=== PATIENT | female | born 1975 | race Caucasian/White ===

== ENCOUNTER 2023-03-01 13:17 | Emergency (ER) | payer SELFPAY ==
[2023-03-01 13:33] VITALS: BP 110/63; PULSE 61; RESP 18; TEMP 36.7; O2SAT 98; BMI 29.3
--- NOTE | 2023-03-01 13:41 | ECG_ITS ---
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
[2023-03-01 14:02] LABS: Basophils Absolute Auto 0.1 10^3/uL (0.0-0.1); Basophils Percent Auto 1.1 % (0.2-2.0); Eosinophils Absolute Auto 0.1 10^3/uL (0.0-0.7); Eosinophils Percent Auto 2.1 % (0.9-7.0); Hematocrit 39.3 % (36.0-48.0); Immature Granulocytes Abs Auto 0.01 10^3/uL (0.00-0.03); Immature Granulocytes Pct Auto 0.2 % (0.0-0.5); Lymphocytes Absolute Auto 1.6 10^3/uL (1.2-3.8); Lymphocytes Percent Auto 23.8 % (20.5-60.0); Mean Corpuscular HGB Conc 33.1 g/dL (29.9-35.2); Mean Corpuscular Volume 93.6 fL (81.0-99.0); Mean Platelet Volume 8.7 fL (9.5-13.5); Monocytes Absolute Auto 0.7 10^3/uL (0.3-0.8); Monocytes Percent Auto 11.2 % (1.7-12.0); Neutrophils Absolute Auto 4.1 10^3/uL (1.4-6.5); Neutrophils Percent Auto 61.6 % (43.0-75.0); Platelet Count 245 10^3/uL (150-450); Red Cell Distribution Width 12.9 % (11.0-15.0); White Blood Count 6.6 10^3/uL (4.0-11.0)
[2023-03-01 14:05] VITALS: RESP 14; O2SAT 97
[2023-03-01 14:10] VITALS: PULSE 58
--- NOTE | 2023-03-01 14:11 | CT_ITS ---
The [address] [address] Patient Name: SOTO ALVARADO MRN: [id number] date: 1975 Sex: F Assigned Patient Location: ER Current Patient Location: ER Accession/Order Number: [id number] Exam Date: 03/01/2023 14:35 Report Date: 03/01/2023 15:11 At the request of: TIGRE SALOMON Procedure: CT cervical spine wo con EXAM: CT cervical spine wo con HISTORY: Peripheral paresthesia COMPARISON: None. TECHNIQUE: Contiguous transaxial images obtained from skullbase through cervical spine without administration of intravenous contrast. Coronal and sagittal reformations were obtained. Dose reduction: mA and/or kV are were adjusted by automated exposure control software based upon patients height and weight. FINDINGS: There is straightening of the cervical spine with loss of normal cervical lordosis. There is no prevertebral soft tissue swelling or acute cervical spine fracture. Intervertebral disc spaces and vertebral body heights are normal. There is a minimal posterior disc-osteophyte complex at C6-C7. There is right C3-C4 facet osteoarthritis with nonuniform joint space narrowing, osteophytosis, subchondral sclerosis, and subchondral cyst formation. There is resultant right C3-C4 neural foraminal narrowing. There is debris within the mildly patulous esophagus. CT/CT cervical spine wo con IMPRESSION: 1. No acute osseous abnormality of the cervical spine. 2. Straightening of the cervical spine with loss of normal cervical lordosis. This likely positional or related to muscle spasm. 3. Right C3-C4 facet osteoarthritis at contributes to right C3-C4 neural foraminal narrowing. 4. Debris within mildly patulous esophagus. Electronically authenticated by: NOEMI PARRY Date: 03/01/2023 15:11
--- NOTE | 2023-03-01 14:11 | ED_ITS ---
HPI - Chest Pain General Chief Complaint: Chest Pain Stated Complaint: CHEST PAIN Time Seen by Provider: 03/01/23 13:40 Source: patient Mode of arrival: walk-in Limitations: no limitations History of Present Illness HPI narrative: Patient is a 47-year-old female presents to the emergency department for the evaluation of multiple complaints that been ongoing for the last 3 months. 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 She states for the last several months she has been feeling the paresthesia during the daytime as well, she saw a chiropractor and a massage therapist and states plain film x-rays did not show a pinched nerve . She has also had heaviness and tightness in the anterior chest for several months as well as jaw pain for the last several days. She has seen a dentist who referred her to her PCP, she states when she called the PCP office she was referred to [facility] emergency department. She has no other major medical problems. She is not concerned for . She took an aspirin at work today before it was strongly encouraged that she come to the ER. Risk Factors Coronary artery disease risk factors: none Related Data Previous Rx's Medication Instructions Recorded methylprednisolone 4 mg tablets in See Rx Instructions .Route 03/01/23 a dose pack (Medrol (Paul)) .COMPLEX #21 ea mupirocin 2 % topical ointment 1 applic topical BID #15 grams 03/01/23 pantoprazole 40 mg tablet,delayed 40 mg PO DAILY #7 tabs 03/01/23 release (Protonix) sucralfate 1 gram tablet (Carafate) 1 g PO Q6H PRN abdominal pain #12 03/01/23 tabs Allergies Allergy/AdvReac Type Severity Reaction Status Date / Time No Known Drug Allergies Allergy Verified 03/01/23 13:33 Review of Systems ROS Constitutional Denies: fever or chills Ears, nose, mouth, and throat Denies: throat pain Cardiovascular Reports: chest pain Respiratory Denies: shortness of breath or cough Gastrointestinal Denies: nausea, vomiting or diarrhea Genitourinary Denies: painful urination Musculoskeletal Reports: neck pain; Denies: back pain Integumentary/Breast Denies: rash Neurological Reports: numbness in extremities; Denies: headache Exam Narrative Exam Narrative: Gen.: Awake, alert, in no distress Head: Normocephalic, atraumatic ENT: Moist mucous membranes, C-spine nontender Respiratory: No respiratory distress, lungs clear bilaterally Cardio: Regular rate and rhythm Extremities: Moves extremities equally, no pedal edema Psych: Normal mood and affect Neuro: No focal neuro deficit Skin: Warm, dry, intact Constitutional Vital Signs, click to edit/add: Last Vital Signs Temp 98.1 F 03/01/23 13:33 Pulse 61 03/01/23 13:33 Resp 14 03/01/23 14:05 BP 110/63 03/01/23 13:33 Pulse Ox 97 03/01/23 14:05 O2 Del Method Room Air 03/01/23 14:05 Course Vital Signs Vital signs: Vital Signs Temperature 98.1 F 03/01/23 13:33 Pulse Rate 61 03/01/23 13:33 Respiratory Rate 18 03/01/23 13:33 Blood Pressure 110/63 03/01/23 13:33 Pulse Oximetry 98 03/01/23 13:33 Oxygen Delivery Method Room Air 03/01/23 13:33 Temperature 98.1 F 03/01/23 13:33 Pulse Rate 61 03/01/23 13:33 Respiratory Rate 14 03/01/23 14:05 Blood Pressure 110/63 03/01/23 13:33 Pulse Oximetry 97 03/01/23 14:05 Oxygen Delivery Method Room Air 03/01/23 14:05 MDM - Chest Pain MDM Narrative Medical decision making narrative: Patient with a benign exam, normal vital signs, no EKG changes. Her CT of the C-spine does show degenerative changes and foraminal narrowing at C3, C4, I suspect this is the cause of her paresthesias. Chest x-ray is unremarkable. CT of the C-spine also shows the patient has a patulous esophagus with debris, I suspect esophagitis may be causing her chest discomfort and jaw pain. Labs including troponin, D-dimer, TSH all within normal limits. Follow-up with PCP and return to the ER if symptoms change or worsen. At time of reevaluation, patient request that I look at a small rash to his left corner of the mouth has been present for several days, she states it started as a small pimple-like area that she picked at and has now developed a cluster of small scabbed areas. The patient is noted to have a small impetigo like rash to the left corner of the mouth with no crusting or drainage. She will be given Bactroban, Protonix, Carafate, Medrol Dosepak for home. Follow-up with PCP and return to the ER if symptoms change or worsen Medical Records Data Attestation: I reviewed the patient's medical records. Lab Data Attestation: I reviewed the patient's lab results. Labs: Lab Results 03/01/23 Range/Units 13:55 WBC 6.6 (4.0-11.0) 10^3/uL RBC 4.20 (4.20-5.40) 10^6/uL Hgb 13.0 (12.0-16.0) g/dL Hct 39.3 (36.0-48.0) % MCV 93.6 (81.0-99.0) fL MCH 31.0 (26.7-34.0) pg MCHC 33.1 (29.9-35.2) g/dL RDW 12.9 (11.0-15.0) % Plt Count 245 (150-450) 10^3/uL MPV 8.7 L (9.5-13.5) fL Neut % (Auto) 61.6 (43.0-75.0) % Lymph % (Auto) 23.8 (20.5-60.0) % [place] % (Auto) 11.2 (1.7-12.0) % Eos % (Auto) 2.1 (0.9-7.0) % Baso % (Auto) 1.1 (0.2-2.0) % Neut # (Auto) 4.1 (1.4-6.5) 10^3/uL Lymph # (Auto) 1.6 (1.2-3.8) 10^3/uL [place] # (Auto) 0.7 (0.3-0.8) 10^3/uL Eos # (Auto) 0.1 (0.0-0.7) 10^3/uL Baso # (Auto) 0.1 (0.0-0.1) 10^3/uL Abs Immat Gran (auto) 0.01 (0.00-0.03) 10^3/uL Imm/Tot Granulo (auto) 0.2 (0.0-0.5) % PT 10.9 (9.0-11.6) sec INR 1.03 D-Dimer <0.19 (<=0.59) mg/L FEU Sodium 139 (136-145) mmol/L Potassium 4.0 (3.5-5.1) mmol/L Chloride 103 (98-107) mmol/L Carbon Dioxide 29.1 (21.0-32.0) mmol/L Anion Gap 10.9 BUN 25.0 H (7.0-18.0) mg/dL Creatinine 0.99 (0.55-1.02) mg/dL Est GFR ( Amer) >60 (>=60) Est GFR (Non-Af Amer) 60 (>=60) BUN/Creatinine Ratio 25.3 Glucose 102 (74-106) mg/dL Calcium 8.7 (8.5-10.1) mg/dL Magnesium 2.1 (1.8-2.4) mg/dL Total Bilirubin 0.4 (0.2-1.0) mg/dL AST 18 (15-37) U/L ALT 23 (14-59) U/L Alkaline Phosphatase 60 (46-116) U/L Troponin I High Sens 7.4 (4.0-51.3) pg/mL NT-Pro-B Natriuret Pep 99.0 (<=900.0) pg/mL Total Protein 7.4 (6.4-8.2) g/dL Albumin 3.7 (3.4-5.0) g/dL Globulin 3.7 g/dL Albumin/Globulin Ratio 1.0 TSH 1.390 (0.358-3.740) uIU/mL Serum HCG, Qual Negative (NEGATIVE) ECG Data Attestation: I personally reviewed and interpreted this ECG as follows: (Normal sinus rhythm at a rate of 58, no acute ST elevation or ectopy. EKG reviewed by attending physician) Discharge Plan Discharge Chief Complaint: Chest Pain Clinical Impression: Paresthesia of upper limb, Impetigo, Chest pain Patient Disposition: Home, Self-Care Time of Disposition Decision: 15:38 Condition: Good Prescriptions / Home Meds: New sucralfate [Carafate] 1 gram tablet 1 g PO Q6H PRN (Reason: abdominal pain) Qty: 12 0RF pantoprazole [Protonix] 40 mg tablet,delayed release (DR/EC) 40 mg PO DAILY Qty: 7 0RF mupirocin 2 % ointment 1 applic topical BID Qty: 15 0RF methylprednisolone [Medrol (Paul)] 4 mg tablets,dose pack See Rx Instructions .ROUTE .COMPLEX Qty: 21 0RF Rx Instructions: Taper as directed Instructions: Chest Pain (ED), Impetigo (ED), Paresthesia (ED) Stand Alone Forms: Portal Instructions Referrals: Physician,Non-Staff, MD [Primary Care Provider] - 1 week
[2023-03-01] MEDS: ASPIRIN 81 MG TAB.CHEW PO (14:20)
[2023-03-01 14:32] LABS: INR 1.03; Prothrombin Time 10.9 sec (9.0-11.6)
[2023-03-01 14:38] LABS: D Dimer <0.19 mg/L FEU (<=0.59)
--- NOTE | 2023-03-01 14:39 | XR_ITS ---
The [address] [address] Patient Name: SOTO ALVARADO MRN: [id number] date: 1975 Sex: F Assigned Patient Location: ER Current Patient Location: ER Accession/Order Number: [id number] Exam Date: 03/01/2023 14:51 Report Date: 03/01/2023 15:13 At the request of: TIGRE SALOMON Procedure: XR chest 1V EXAM: XR chest 1V at 1450 hours HISTORY: Chest pain COMPARISON: None. TECHNIQUE: AP upright portable chest x-ray FINDINGS: The heart is not enlarged and the vasculature is not distended. No acute infiltrate, effusion or pneumothorax is identified. The osseous structures are grossly intact. XR/XR chest 1V IMPRESSION: No acute infiltrate or evidence of cardiac decompensation. Comparison with a previous study may be helpful in determining the chronicity of these findings. Electronically authenticated by: LUIS DAMON Date: 03/01/2023 15:13
[2023-03-01 14:42] LABS: Alanine Aminotransferase 23 U/L (14-59); Albumin Level 3.7 g/dL (3.4-5.0); Alkaline Phosphatase 60 U/L (46-116); Anion Gap 10.9; Aspartate Amino Transferase 18 U/L (15-37); BUN Creatinine Ratio 25.3; Bilirubin Total 0.4 mg/dL (0.2-1.0); Calcium 8.7 mg/dL (8.5-10.1); Carbon Dioxide 29.1 mmol/L (21.0-32.0); Chloride 103 mmol/L (98-107); Estimated GFR (African America >60 (>=60); Estimated GFR (Non-African Ame 60 (>=60); Globulin 3.7 g/dL; Glucose 102 mg/dL (74-106); Magnesium 2.1 mg/dL (1.8-2.4); Sodium 139 mmol/L (136-145); Total Protein 7.4 g/dL (6.4-8.2); Troponin I High Sensitivity 7.4 pg/mL (4.0-51.3)
[2023-03-01 15:13] LABS: HCG Qualitative NEGATIVE (NEGATIVE)
[2023-03-01 15:40] VITALS: PULSE 63; RESP 14; O2SAT 96
== END 2023-03-01 15:50 | disposition home or self-care (01) ==
PROVIDERS: Physician Assistant; Emergency Provider Emergency Medicine Emergency Medical Services
DX: R07.9 Chest pain, unspecified (principal); R20.2 Paresthesia of skin; L01.00 Impetigo, unspecified
CPT/HCPCS: 36415; 71045; 72125; 80053; 83735; 83880; 84443; 84484; 84703; 85025; 85378; 85610; 93005; 99285